=== PATIENT | male | born 1930 | race Hispanic/Latino ===

== ENCOUNTER 2020-01-27 19:57 | Inpatient (IN) | payer MEDICARE, OTHER ==
[~2020-01-27] VITALS: Ht 167.6 cm; Wt 81.0 kg
[~2020-01-27 19:57] MED LIST: AMLODIPINE BES2.5 MG PO; BENICAR5 MG PO; CARVEDILOL25 MG PO; DOXAZOSIN MESYLA4 MG PO; ECOTRIN81 MG PO; FERROUS SULFAT325 MG PO; FINASTERIDE5 MG PO; FUROSEMIDE40 MG PO; GLIPIZIDE ER2.5 MG PO; GLIPIZIDE5 MG PO; GLYSET PO; ISOSORBIDE MONO60 MG PO; JANUVIA50 MG PO; LIPITOR20 MG PO; PANTOPRAZOLE SO40 MG PO; PRADAXA75 MG PO; VITAMIN D350000 UNIT PO
[2020-01-27 20:15] LABS: BASOPHILS % 0.2 % (0.0-1.0); EOSINOPHILS % 0.2 % (0.0-6.0); HEMATOCRIT 22.6 % (38.2-49.6); HEMOGLOBIN 7.2 g/dL (14.0-18.0); LYMPHOCYTES # (AUTO) 0.5 (1.0-3.2); LYMPHOCYTES % 7.8 % (18.0-39.1); MEAN CORPUSCULAR HEMOGLOBIN 32.6 pg (28-32); MEAN CORPUSCULAR HGB CONC 31.9 g/dL (31-35); MEAN CORPUSCULAR VOLUME 102.3 fL (81-99); MONOCYTES # (AUTO) 0.4 (0.2-0.8); MONOCYTES % 6.7 % (4.4-11.3); NEUTROPHILS % 84.8 % (38.7-80.0); PLATELET COUNT 100 x10e3/uL (140-360); RED BLOOD COUNT 2.21 x10e6/uL (4.3-5.7)
[2020-01-27 20:34] LABS: ALBUMIN 3.5 g/dL (3.5-5.0); ANION GAP 17.6 mmol/L (8-16); CALCIUM 7.9 mg/dL (8.4-10.2); CREATININE, SERUM 4.48 mg/dL (0.72-1.25)
[2020-01-27 20:36] LABS: POTASSIUM 5.6 mmol/L (3.5-5.1)
[2020-01-27] MEDS ORDERED: CALCIUM GLUCONATE 10% INJ 4.65 MEQ in SODIUM CHLORIDE 0.9% 50ML 50 ML IV ONE (22:00)
[2020-01-27] MEDS ORDERED: FUROSEMIDE INJ 10 MG/ML 2 ML VIAL IV ONE (22:00)
[2020-01-27] MEDS ORDERED: SOD POLYSTYRENE SULFONATE SUSP 15 GM/60 ML BTL PO ONE (22:00)
[2020-01-27] MEDS: ALBUTEROL SULFATE HFA 8GM INHALATION AEROSOL INH PRN (23:15)
[2020-01-27] MEDS ORDERED: ALBUTEROL SULF 0.083% NEB SOLN 3 ML NEB NEB STA (23:19)
[2020-01-27] MEDS ORDERED: ALBUTEROL/IPRATROPIUM 3 ML NEB ONE (23:29)
[2020-01-27] MEDS ORDERED: ONDANSETRON HCL INJ 2MG/ML 2ML 2 MG/ML VIAL IV PRN (23:30)
[2020-01-28] VITALS (7 sets, daily range): BP systolic 125–171; BP diastolic 57–81
[2020-01-28 01:14] LABS: CLARITY,URINE SL CLOUDY (CLEAR); COLOR,URINE YELLOW (YELLOW); KETONES,URINE TRACE (NEGATIVE); LEUKOCYTE ESTERASE ,URINE NEGATIVE (NEGATIVE); NITRITE,URINE NEGATIVE (NEGATIVE); PROTEIN,URINE DIPSTICK 1+ (NEGATIVE); URINE UROBILINOGEN 0.2 mg/dL (0.2 - 1)
[2020-01-28 01:21] LABS: BACTERIA,URINE MODERATE /HPF; EPITHELIAL CELLS,URINE MODERATE /LPF; RBC,URINE 0-5 /HPF (0-5)
[2020-01-28] MEDS: SODIUM CHLORIDE 0.9% 1000ML 1,000 ML IV SCH ×3 (01:45→20:00)
[2020-01-28] MEDS: MORPHINE SULFATE INJ 4 MG/ML INJ 1ML IV PRN (01:45)
[2020-01-28] MEDS ORDERED: BUMETANIDE1 MG PO (02:31)
[2020-01-28] MEDS ORDERED: NIFEDIPINE ER30 M1 PO (02:31)
[2020-01-28] MEDS ORDERED: STARLIX120 MG PO (02:31)
[2020-01-28 07:06] LABS: BASOPHILS % 0.2 % (0.0-1.0); EOSINOPHILS % 0.5 % (0.0-6.0); LYMPHOCYTES # (AUTO) 0.7 (1.0-3.2); LYMPHOCYTES % 15.2 % (18.0-39.1); MEAN CORPUSCULAR HEMOGLOBIN 32.7 pg (28-32); MEAN CORPUSCULAR HGB CONC 31.9 g/dL (31-35); MEAN CORPUSCULAR VOLUME 102.5 fL (81-99); MONOCYTES # (AUTO) 0.4 (0.2-0.8); MONOCYTES % 8.1 % (4.4-11.3); NEUTROPHILS # (AUTO) 3.3 (2.1-6.9); NEUTROPHILS % 75.5 % (38.7-80.0); PLATELET COUNT 101 x10e3/uL (140-360); RED BLOOD COUNT 1.99 x10e6/uL (4.3-5.7); RED CELL DISTRIBUTION WIDTH 16.9 % (11.7-14.4)
[2020-01-28 07:12] LABS: HEMATOCRIT 20.4 % (38.2-49.6); HEMOGLOBIN 6.5 g/dL (14.0-18.0)
[2020-01-28 07:31] LABS: ANION GAP 17.5 mmol/L (8-16); CALCIUM 7.8 mg/dL (8.4-10.2); CREATININE, SERUM 4.33 mg/dL (0.72-1.25); POTASSIUM 4.5 mmol/L (3.5-5.1)
[2020-01-28] MEDS ORDERED: SODIUM CHLORIDE 0.9% 250ML 250 ML IV SCH (07:45)
[2020-01-28] MEDS ORDERED: SODIUM CHLORIDE 0.9% 250ML 250 ML ONE ×2 (12:12→15:16)
[2020-01-28] MEDS ORDERED: DEXTROSE 50% SYRINGE 50 ML IV PRN (14:30)
[2020-01-28] MEDS ORDERED: FERROUS SULFATE 325 MG TAB PO PRN (14:30)
[2020-01-28] MEDS ORDERED: FUROSEMIDE INJ 10 MG/ML 4 ML VIAL IV ONE (15:00)
[2020-01-28] MEDS: INSULIN REGULAR, HUMAN 100 UNIT/1 ML 3ML VIAL SQ SCH ×2 (16:30→21:00)
[2020-01-28] MEDS ORDERED: NATEGLINIDE 120 MG TAB PO SCH (17:00)
[2020-01-28] MEDS: DABIGATRAN ETEXILATE 75 MG CAP PO SCH (18:27)
[2020-01-28] MEDS ORDERED: ATORVASTATIN 20 MG TAB PO SCH (21:00)
[2020-01-28] MEDS ORDERED: OLMESARTAN MEDOXOMIL 5 MG TABLET PO SCH (21:00)
[2020-01-28] MEDS: FINASTERIDE 5 MG TAB PO SCH (22:30)
[2020-01-28] MEDS: NIFEDIPINE CR 30 MG TAB PO SCH (22:30)
[2020-01-28] MEDS: ATORVASTATIN 40 MG TAB PO SCH (22:30)
[2020-01-28] MEDS: ALBUTEROL SULFATE HFA 8GM INHALATION AEROSOL INH PRN (23:55)
[2020-01-29] VITALS (8 sets, daily range): BP systolic 120–163; BP diastolic 58–78
[2020-01-29] MEDS: SODIUM CHLORIDE 0.9% 1000ML 1,000 ML IV SCH ×2 (05:59→18:23)
[2020-01-29 06:12] LABS: BASOPHILS % 0.2 % (0.0-1.0); EOSINOPHILS % 0.5 % (0.0-6.0); HEMATOCRIT 28.8 % (38.2-49.6); HEMOGLOBIN 9.4 g/dL (14.0-18.0); LYMPHOCYTES # (AUTO) 0.6 (1.0-3.2); LYMPHOCYTES % 9.9 % (18.0-39.1); MEAN CORPUSCULAR HEMOGLOBIN 31.5 pg (28-32); MEAN CORPUSCULAR HGB CONC 32.6 g/dL (31-35); MEAN CORPUSCULAR VOLUME 96.6 fL (81-99); MONOCYTES # (AUTO) 0.4 (0.2-0.8); MONOCYTES % 6.6 % (4.4-11.3); NEUTROPHILS # (AUTO) 4.6 (2.1-6.9); NEUTROPHILS % 82.4 % (38.7-80.0); PLATELET COUNT 100 x10e3/uL (140-360); RED BLOOD COUNT 2.98 x10e6/uL (4.3-5.7); RED CELL DISTRIBUTION WIDTH 18.4 % (11.7-14.4)
[2020-01-29 06:30] LABS: ALBUMIN 2.9 g/dL (3.5-5.0); ALBUMIN/GLOBULIN RATIO 0.9 (0.8-2.0); ANION GAP 16.5 mmol/L (8-16); CALCIUM 7.6 mg/dL (8.4-10.2); CREATININE, SERUM 3.32 mg/dL (0.72-1.25); POTASSIUM 3.5 mmol/L (3.5-5.1)
[2020-01-29] MEDS: INSULIN REGULAR, HUMAN 100 UNIT/1 ML 3ML VIAL SQ SCH ×4 (07:30→20:01)
[2020-01-29] MEDS: ALBUTEROL SULFATE HFA 8GM INHALATION AEROSOL INH PRN (08:26)
[2020-01-29] MEDS ORDERED: FUROSEMIDE 40 MG TAB PO SCH (09:00)
[2020-01-29] MEDS ORDERED: PANTOPRAZOLE SOD 40 MG TABEC PO SCH (09:00)
[2020-01-29] MEDS: DABIGATRAN ETEXILATE 75 MG CAP PO SCH (09:00)
[2020-01-29] MEDS: ASPIRIN 81 MG ENTERIC COATED PO SCH (10:03)
[2020-01-29] MEDS: BUMETANIDE 1 MG TAB PO SCH (10:03)
[2020-01-29] MEDS ORDERED: VITAMIN D3 COM1 EACH PO (11:02)
[2020-01-29] MEDS ORDERED: HYDRALAZINE HCL25 MG PO (11:02)
[2020-01-29] MEDS ORDERED: CLOPIDOGREL75 MG PO (11:02)
[2020-01-29] MEDS ORDERED: COLACE100 MG PO (11:02)
[2020-01-29] MEDS ORDERED: DOCUSATE SODIUM 100 MG CAP PO PRN (11:15)
[2020-01-29] MEDS ORDERED: CYANOCOBALAMIN INJ 1,000 MCG/ML VIAL IM ONE (12:30)
[2020-01-29] MEDS: HYDRALAZINE HCL 25 MG TAB PO SCH ×2 (14:13→20:40)
[2020-01-29] MEDS: CALCIUM CARBONATE 500 MG CHEWABLE TABS PO PRN (14:14)
[2020-01-29] MEDS: GLYSET PO SCH (16:30)
[2020-01-29] MEDS: DOXAZOSIN MESYLATE 2 MG TAB PO SCH (18:00)
[2020-01-29] MEDS: CARVEDILOL 12.5 MG TAB PO SCH (18:03)
[2020-01-29] MEDS: FINASTERIDE 5 MG TAB PO SCH (20:40)
[2020-01-29] MEDS: ATORVASTATIN 40 MG TAB PO SCH (20:40)
[2020-01-29] MEDS: NIFEDIPINE CR 30 MG TAB PO SCH (22:03)
[2020-01-30] VITALS (8 sets, daily range): BP systolic 135–152; BP diastolic 62–71
[2020-01-30] MEDS: SODIUM CHLORIDE 0.9% 1000ML 1,000 ML IV SCH ×3 (02:00→23:25)
[2020-01-30 05:38] LABS: BASOPHILS % 0.2 % (0.0-1.0); EOSINOPHILS % 0.8 % (0.0-6.0); HEMATOCRIT 27.7 % (38.2-49.6); LYMPHOCYTES # (AUTO) 0.6 (1.0-3.2); LYMPHOCYTES % 11.6 % (18.0-39.1); MEAN CORPUSCULAR HGB CONC 32.5 g/dL (31-35); MEAN CORPUSCULAR VOLUME 95.5 fL (81-99); MONOCYTES # (AUTO) 0.4 (0.2-0.8); MONOCYTES % 7.4 % (4.4-11.3); NEUTROPHILS # (AUTO) 3.8 (2.1-6.9); NEUTROPHILS % 79.6 % (38.7-80.0); PLATELET COUNT 100 x10e3/uL (140-360); RED CELL DISTRIBUTION WIDTH 17.6 % (11.7-14.4)
[2020-01-30 06:24] LABS: ANION GAP 12.1 mmol/L (8-16); CALCIUM 7.6 mg/dL (8.4-10.2); CREATININE, SERUM 2.61 mg/dL (0.72-1.25); POTASSIUM 3.1 mmol/L (3.5-5.1)
[2020-01-30] MEDS: GLYSET PO SCH ×3 (07:30→16:30)
[2020-01-30] MEDS: INSULIN REGULAR, HUMAN 100 UNIT/1 ML 3ML VIAL SQ SCH ×4 (07:30→21:00)
[2020-01-30] MEDS: ASPIRIN 81 MG ENTERIC COATED PO SCH (09:00)
[2020-01-30] MEDS: CARVEDILOL 12.5 MG TAB PO SCH ×2 (09:39→17:55)
[2020-01-30] MEDS: HYDRALAZINE HCL 25 MG TAB PO SCH ×3 (09:40→21:31)
[2020-01-30] MEDS: BUMETANIDE 1 MG TAB PO SCH (09:41)
[2020-01-30] MEDS: DOXAZOSIN MESYLATE 2 MG TAB PO SCH ×2 (09:42→17:54)
[2020-01-30] MEDS: SITAGLIPTIN 100 MG TAB PO SCH (09:42)
[2020-01-30] MEDS: CLOPIDOGREL BISULFATE 75 MG TAB PO SCH (09:43)
[2020-01-30 09:44] LABS: CREATININE,URINE RANDOM 81.73 mg/dL (63-166)
[2020-01-30] MEDS: CHOLECALCIFEROL 1,000 UNIT TAB PO SCH (09:44)
[2020-01-30] MEDS: CALCIUM CARBONATE 500 MG CHEWABLE TABS PO PRN (09:50)
[2020-01-30 11:02] LABS: PLATELET ESTIMATE MODERATELY DECREASED; PLATELET MORPHOLOGY COMMENT NORMAL
[2020-01-30] MEDS ORDERED: POTASSIUM CHLORIDE 10MEQ EA PO ONE (13:00)
[2020-01-30] MEDS: PANTOPRAZOLE SOD 40 MG TABEC PO SCH (17:54)
[2020-01-30] MEDS: FINASTERIDE 5 MG TAB PO SCH (21:31)
[2020-01-30] MEDS: ATORVASTATIN 40 MG TAB PO SCH (21:31)
[2020-01-30] MEDS: NIFEDIPINE CR 30 MG TAB PO SCH (21:31)
[2020-01-31] VITALS (9 sets, daily range): BP systolic 117–158; BP diastolic 51–78
[2020-01-31 05:31] LABS: BASOPHILS % 0.2 % (0.0-1.0); EOSINOPHILS % 0.6 % (0.0-6.0); HEMATOCRIT 30.3 % (38.2-49.6); HEMOGLOBIN 9.8 g/dL (14.0-18.0); LYMPHOCYTES # (AUTO) 0.5 (1.0-3.2); LYMPHOCYTES % 9.2 % (18.0-39.1); MEAN CORPUSCULAR HEMOGLOBIN 31.2 pg (28-32); MEAN CORPUSCULAR HGB CONC 32.3 g/dL (31-35); MEAN CORPUSCULAR VOLUME 96.5 fL (81-99); MONOCYTES # (AUTO) 0.3 (0.2-0.8); MONOCYTES % 5.4 % (4.4-11.3); NEUTROPHILS # (AUTO) 4.2 (2.1-6.9); NEUTROPHILS % 84.2 % (38.7-80.0); PLATELET COUNT 107 x10e3/uL (140-360); RED BLOOD COUNT 3.14 x10e6/uL (4.3-5.7); RED CELL DISTRIBUTION WIDTH 17.3 % (11.7-14.4)
[2020-01-31 05:56] LABS: ANION GAP 12.3 mmol/L (8-16); CALCIUM 8.1 mg/dL (8.4-10.2); CREATININE, SERUM 2.09 mg/dL (0.72-1.25); POTASSIUM 3.3 mmol/L (3.5-5.1)
[2020-01-31] MEDS: GLYSET PO SCH ×3 (07:30→15:50)
[2020-01-31] MEDS: INSULIN REGULAR, HUMAN 100 UNIT/1 ML 3ML VIAL SQ SCH ×4 (07:30→20:20)
[2020-01-31] MEDS: ASPIRIN 81 MG ENTERIC COATED PO SCH (09:00)
[2020-01-31] MEDS: HYDRALAZINE HCL 25 MG TAB PO SCH ×3 (09:08→21:00)
[2020-01-31] MEDS: BUMETANIDE 1 MG TAB PO SCH (09:08)
[2020-01-31] MEDS: CARVEDILOL 12.5 MG TAB PO SCH ×2 (09:08→16:00)
[2020-01-31] MEDS: DOXAZOSIN MESYLATE 2 MG TAB PO SCH ×2 (09:09→16:00)
[2020-01-31] MEDS: SITAGLIPTIN 100 MG TAB PO SCH (09:09)
[2020-01-31] MEDS: CHOLECALCIFEROL 1,000 UNIT TAB PO SCH (09:09)
[2020-01-31] MEDS: CLOPIDOGREL BISULFATE 75 MG TAB PO SCH (09:09)
[2020-01-31 09:59] LABS: LYMPHOCYTES % (MANUAL) 6 % (19-48); MONOCYTES % (MANUAL) 2 % (3.4-9.0); NEUTROPHILS % (MANUAL) 91 % (40-74)
[2020-01-31 10:01] LABS: ANISOCYTOSIS SLIGHT; GIANT PLATELETS FEW; PLATELET ESTIMATE SLIGHTLY DECREASED; PLATELET MORPHOLOGY COMMENT FEW LARGE; RBC MORPHOLOGY COMMENT NORMAL
[2020-01-31] MEDS ORDERED: PROPOFOL IV EMULSION 10 MG/ML 20 ML VIAL ONE (12:21)
[2020-01-31] MEDS: SODIUM CHLORIDE 0.9% 1000ML 1,000 ML IV SCH ×2 (13:57→17:39)
[2020-01-31] MEDS: PANTOPRAZOLE SOD 40 MG TABEC PO SCH (15:50)
[2020-01-31] MEDS ORDERED: METOCLOPRAMIDE HCL 10 MG/2ML VIAL ONE (18:45)
[2020-01-31] MEDS: ATORVASTATIN 40 MG TAB PO SCH (21:00)
[2020-01-31] MEDS: FINASTERIDE 5 MG TAB PO SCH (21:00)
[2020-01-31] MEDS: NIFEDIPINE CR 30 MG TAB PO SCH (21:00)
[2020-01-31] MEDS: MORPHINE SULFATE INJ 4 MG/ML INJ 1ML IV PRN (21:39)
[2020-02-01] MEDS: SODIUM CHLORIDE 0.9% 1000ML 1,000 ML IV SCH ×2 (04:30→14:00)
[2020-02-01 04:52] VITALS: BP 131/69
[2020-02-01] MEDS: GLYSET PO SCH ×2 (07:30→11:30)
[2020-02-01] MEDS: INSULIN REGULAR, HUMAN 100 UNIT/1 ML 3ML VIAL SQ SCH ×2 (07:30→11:30)
[2020-02-01 08:00] VITALS: BP 131/56
[2020-02-01] MEDS: CARVEDILOL 12.5 MG TAB PO SCH (08:00)
[2020-02-01] MEDS: DOXAZOSIN MESYLATE 2 MG TAB PO SCH (08:00)
[2020-02-01] MEDS: SITAGLIPTIN 100 MG TAB PO SCH (08:00)
[2020-02-01] MEDS: BUMETANIDE 1 MG TAB PO SCH (08:00)
[2020-02-01] MEDS: HYDRALAZINE HCL 25 MG TAB PO SCH ×2 (08:00→15:00)
[2020-02-01] MEDS: CLOPIDOGREL BISULFATE 75 MG TAB PO SCH (08:00)
[2020-02-01] MEDS: ASPIRIN 81 MG ENTERIC COATED PO SCH (08:07)
[2020-02-01] MEDS: CHOLECALCIFEROL 1,000 UNIT TAB PO SCH (08:07)
[2020-02-01 08:11] VITALS: BP 131/56
[2020-02-01] MEDS ORDERED: ONDANSETRON HCL 4 MG ORAL DISINTEGRATING TAB PO PRN (10:30)
[2020-02-01 12:11] VITALS: BP 134/75
[2020-02-01 15:45] VITALS: BP 147/69
== END 2020-02-01 16:11 | disposition home or self-care (01) | DRG 377 ==
LOC: ER 20:51 → ERHOLD 23:27 → MED/SURG 01-28 00:39
PROC: 0DB78ZX Excision of Stomach, Pylorus, Via Natural or Artificial Opening Endoscopic, Diagnostic (ICD-10-PCS; 2020-01-31)
PROC: 0DB68ZX Excision of Stomach, Via Natural or Artificial Opening Endoscopic, Diagnostic (ICD-10-PCS; principal; 2020-01-31 18:04)
DX: K29.81 Duodenitis with bleeding (principal); J81.0 Acute pulmonary edema; I50.23 Acute on chronic systolic (congestive) heart failure; N17.9 Acute kidney failure, unspecified; N18.4 Chronic kidney disease, stage 4 (severe); K26.9 Duodenal ulcer, unspecified as acute or chronic, without hemorrhage or perforation; E11.51 Type 2 diabetes mellitus with diabetic peripheral angiopathy without gangrene; E11.22 Type 2 diabetes mellitus with diabetic chronic kidney disease; E11.21 Type 2 diabetes mellitus with diabetic nephropathy; I12.9 Hypertensive chronic kidney disease with stage 1 through stage 4 chronic kidney disease, or unspecified chronic kidney disease; K29.70 Gastritis, unspecified, without bleeding; K20.90 Esophagitis, unspecified without bleeding; E11.43 Type 2 diabetes mellitus with diabetic autonomic (poly)neuropathy; K31.84 Gastroparesis; Z79.899 Other long term (current) drug therapy; E87.5 Hyperkalemia; D63.8 Anemia in other chronic diseases classified elsewhere; I25.10 Atherosclerotic heart disease of native coronary artery without angina pectoris
CPT/HCPCS: 36415; 43239; 71046; 71250; 74176; 80048; 80053; 81001; 82270; 82575; 82607; 82746; 82948; 83690; 83880; 84484; 85025; 85045; 86850; 86900; 86920; 87086; 88305; 88312; 93005; 94640; 94664; 99284; J0610; J1817; J1940; J2270; J2405; J2765; J3420; J7030; J7050; P9016; U0002

== ENCOUNTER 2020-02-06 16:12 | Inpatient (IN) | payer MEDICARE ==
[~2020-02-06] VITALS: Ht 167.6 cm; Wt 69.0 kg
[~2020-02-06 16:12] MED LIST changes: +BUMETANIDE1 MG PO; +CLOPIDOGREL75 MG PO; +COLACE100 MG PO; +HYDRALAZINE HCL25 MG PO; +NIFEDIPINE ER30 M1 PO; +STARLIX120 MG PO; +VITAMIN D3 COM1 EACH PO
[2020-02-06 17:25] LABS: BASOPHILS % 0.1 % (0.0-1.0); EOSINOPHILS % 0.1 % (0.0-6.0); HEMATOCRIT 32.1 % (38.2-49.6); HEMOGLOBIN 10.5 g/dL (14.0-18.0); LYMPHOCYTES # (AUTO) 0.3 (1.0-3.2); LYMPHOCYTES % 2.6 % (18.0-39.1); MEAN CORPUSCULAR HEMOGLOBIN 31.3 pg (28-32); MEAN CORPUSCULAR HGB CONC 32.7 g/dL (31-35); MEAN CORPUSCULAR VOLUME 95.5 fL (81-99); MONOCYTES # (AUTO) 0.7 (0.2-0.8); MONOCYTES % 5.6 % (4.4-11.3); NEUTROPHILS # (AUTO) 11.1 (2.1-6.9); PLATELET COUNT 152 x10e3/uL (140-360); RED BLOOD COUNT 3.36 x10e6/uL (4.3-5.7); RED CELL DISTRIBUTION WIDTH 17.2 % (11.7-14.4)
[2020-02-06 17:29] LABS: PROTHROMBIN TIME 13.7 seconds (11.9-14.5)
[2020-02-06 17:30] LABS: PARTIAL THROMBOPLASTIN TIME 32.4 seconds (23.8-35.5)
[2020-02-06 17:39] LABS: ALBUMIN 3.3 g/dL (3.5-5.0); ALBUMIN/GLOBULIN RATIO 0.9 (0.8-2.0); ANION GAP 14.5 mmol/L (8-16); CALCIUM 8.1 mg/dL (8.4-10.2); CREATININE, SERUM 2.32 mg/dL (0.72-1.25); POTASSIUM 3.5 mmol/L (3.5-5.1)
[2020-02-06 17:46] LABS: CREATINE KINASE MB 3.9 ng/mL (0-5.0)
[2020-02-06 17:55] LABS: AMYLASE 32 U/L (25-125); LIPASE 6 U/L (8-78)
[2020-02-06] MEDS ORDERED: FUROSEMIDE INJ 10 MG/ML 4 ML VIAL IV ONE (20:30)
[2020-02-06] MEDS ORDERED: DEXTROSE 50% SYRINGE 50 ML IV PRN (20:45)
[2020-02-06] MEDS ORDERED: SODIUM CHLORIDE FLUSH 10 ML SYR INJ PRN (20:45)
[2020-02-06] MEDS: FUROSEMIDE INJ 10 MG/ML 4 ML VIAL IV SCH (20:54)
[2020-02-06] MEDS: INSULIN REGULAR, HUMAN 100 UNIT/1 ML 3ML VIAL SQ SCH (21:16)
[2020-02-06 22:00] VITALS: BP 163/68
[2020-02-06] MEDS ORDERED: FERROUS SULFATE 325 MG TAB PO PRN (23:00)
[2020-02-06] MEDS ORDERED: DOCUSATE SODIUM 100 MG CAP PO PRN (23:00)
[2020-02-07] MEDS ORDERED: MIRALAX17 GM PO (00:08)
[2020-02-07 01:52] LABS: CREATINE KINASE MB 2.2 ng/mL (0-5.0)
[2020-02-07] MEDS: NIFEDIPINE CR 30 MG TAB PO SCH ×2 (02:38→21:55)
[2020-02-07 05:19] LABS: BASOPHILS % 0.2 % (0.0-1.0); HEMATOCRIT 31.2 % (38.2-49.6); HEMOGLOBIN 10.3 g/dL (14.0-18.0); LYMPHOCYTES # (AUTO) 0.5 (1.0-3.2); LYMPHOCYTES % 3.1 % (18.0-39.1); MEAN CORPUSCULAR HEMOGLOBIN 32.1 pg (28-32); MEAN CORPUSCULAR VOLUME 97.2 fL (81-99); MONOCYTES # (AUTO) 0.8 (0.2-0.8); MONOCYTES % 5.4 % (4.4-11.3); NEUTROPHILS # (AUTO) 13.4 (2.1-6.9); NEUTROPHILS % 90.6 % (38.7-80.0); PLATELET COUNT 139 x10e3/uL (140-360); RED BLOOD COUNT 3.21 x10e6/uL (4.3-5.7); RED CELL DISTRIBUTION WIDTH 17.3 % (11.7-14.4)
[2020-02-07] MEDS: FUROSEMIDE INJ 10 MG/ML 4 ML VIAL IV SCH ×3 (05:32→21:55)
[2020-02-07 06:21] LABS: ALBUMIN 2.9 g/dL (3.5-5.0); ALBUMIN/GLOBULIN RATIO 0.9 (0.8-2.0); ANION GAP 13.5 mmol/L (8-16); CREATININE, SERUM 2.22 mg/dL (0.72-1.25); POTASSIUM 3.5 mmol/L (3.5-5.1)
[2020-02-07] MEDS: INSULIN REGULAR, HUMAN 100 UNIT/1 ML 3ML VIAL SQ SCH ×4 (07:30→21:00)
[2020-02-07 08:00] VITALS: BP 179/75
[2020-02-07 08:40] VITALS: BP 145/53
[2020-02-07] MEDS ORDERED: PANTOPRAZOLE SOD 40 MG TABEC PO SCH (09:00)
[2020-02-07] MEDS: HYDRALAZINE HCL 25 MG TAB PO SCH ×3 (09:52→21:00)
[2020-02-07] MEDS: DOXAZOSIN MESYLATE 2 MG TAB PO SCH ×2 (09:53→17:37)
[2020-02-07] MEDS: CARVEDILOL 12.5 MG TAB PO SCH ×2 (09:53→17:39)
[2020-02-07] MEDS: SITAGLIPTIN 100 MG TAB PO SCH (09:54)
[2020-02-07] MEDS: NATEGLINIDE 120 MG TAB PO SCH ×2 (09:55→17:39)
[2020-02-07 12:14] VITALS: BP 117/51
[2020-02-07 13:36] LABS: CREATINE KINASE MB 2.2 ng/mL (0-5.0)
[2020-02-07] MEDS: VANCOMYCIN 1GM/NS 250 ML 250 ML IV SCH (14:49)
[2020-02-07] MEDS: CEFEPIME 1GM/NS 0.9% 50 ML 50 ML IV SCH (14:49)
[2020-02-07 15:25] LABS: CLARITY,URINE HAZY (CLEAR); COLOR,URINE YELLOW (YELLOW); KETONES,URINE NEGATIVE (NEGATIVE); LEUKOCYTE ESTERASE ,URINE MODERATE (NEGATIVE); NITRITE,URINE POSITIVE (NEGATIVE); PROTEIN,URINE DIPSTICK TRACE (NEGATIVE); URINE UROBILINOGEN 0.2 mg/dL (0.2 - 1)
[2020-02-07 15:37] LABS: BACTERIA,URINE MANY /HPF
[2020-02-07 16:05] VITALS: BP 136/48
[2020-02-07] MEDS: PANTOPRAZOLE SOD 40 MG TABEC PO SCH (17:39)
[2020-02-07 20:00] VITALS: BP 127/47
[2020-02-07 21:00] VITALS: BP 127/47
[2020-02-07] MEDS: FINASTERIDE 5 MG TAB PO SCH (21:55)
[2020-02-07] MEDS: ATORVASTATIN 20 MG TAB PO SCH (21:55)
[2020-02-08] VITALS (8 sets, daily range): BP systolic 101–153; BP diastolic 43–65
[2020-02-08] MEDS ORDERED: SODIUM CHLORIDE 0.9% 250ML 250 ML ONE (00:46)
[2020-02-08] MEDS: CEFEPIME 1GM/NS 0.9% 50 ML 50 ML IV SCH ×2 (00:51→17:58)
[2020-02-08] MEDS: HYDRALAZINE HCL 25 MG TAB PO SCH ×4 (00:52→21:00)
[2020-02-08 05:16] LABS: BASOPHILS % 0.1 % (0.0-1.0); EOSINOPHILS % 0.1 % (0.0-6.0); HEMATOCRIT 28.9 % (38.2-49.6); HEMOGLOBIN 9.4 g/dL (14.0-18.0); LYMPHOCYTES # (AUTO) 0.5 (1.0-3.2); LYMPHOCYTES % 3.5 % (18.0-39.1); MEAN CORPUSCULAR HEMOGLOBIN 31.1 pg (28-32); MEAN CORPUSCULAR HGB CONC 32.5 g/dL (31-35); MEAN CORPUSCULAR VOLUME 95.7 fL (81-99); MONOCYTES # (AUTO) 0.7 (0.2-0.8); MONOCYTES % 4.8 % (4.4-11.3); NEUTROPHILS # (AUTO) 13.6 (2.1-6.9); NEUTROPHILS % 90.5 % (38.7-80.0); PLATELET COUNT 135 x10e3/uL (140-360); RED BLOOD COUNT 3.02 x10e6/uL (4.3-5.7); RED CELL DISTRIBUTION WIDTH 17.2 % (11.7-14.4)
[2020-02-08 05:37] LABS: CALCIUM IONIZED 1.1 mmol/L (1.09-1.30)
[2020-02-08 05:45] LABS: ALBUMIN 2.6 g/dL (3.5-5.0); ALBUMIN/GLOBULIN RATIO 0.8 (0.8-2.0); ANION GAP 13.7 mmol/L (8-16); CALCIUM 7.8 mg/dL (8.4-10.2); CREATININE, SERUM 2.23 mg/dL (0.72-1.25)
[2020-02-08 05:54] LABS: POTASSIUM 2.7 mmol/L (3.5-5.1)
[2020-02-08] MEDS: FUROSEMIDE INJ 10 MG/ML 4 ML VIAL IV SCH (05:57)
[2020-02-08 06:01] LABS: MAGNESIUM 1.6 MG/DL (1.3-2.1)
[2020-02-08] MEDS: INSULIN REGULAR, HUMAN 100 UNIT/1 ML 3ML VIAL SQ SCH ×4 (07:30→20:12)
[2020-02-08] MEDS: DOXAZOSIN MESYLATE 2 MG TAB PO SCH ×2 (09:36→18:06)
[2020-02-08] MEDS: CARVEDILOL 12.5 MG TAB PO SCH ×2 (09:37→18:14)
[2020-02-08] MEDS: SITAGLIPTIN 100 MG TAB PO SCH (09:37)
[2020-02-08] MEDS: NATEGLINIDE 120 MG TAB PO SCH ×2 (09:38→18:15)
[2020-02-08] MEDS: PANTOPRAZOLE SOD 40 MG TABEC PO SCH ×2 (09:38→18:15)
[2020-02-08] MEDS ORDERED: MAGNESIUM SULFATE 2GM/50ML 50 ML IV ONE (11:45)
[2020-02-08] MEDS ORDERED: POTASSIUM CHLORIDE 20MEQ/100ML 300 ML IV ONE (11:45)
[2020-02-08] MEDS ORDERED: POTASSIUM CHLORIDE 20 MEQ TAB CR PO NR (12:00)
[2020-02-08] MEDS ORDERED: POTASSIUM CHLORIDE 20MEQ/100ML 200 ML IV ONE (12:30)
[2020-02-08] MEDS: VANCOMYCIN 1GM/NS 250 ML 250 ML IV SCH (17:59)
[2020-02-08] MEDS: FUROSEMIDE 40 MG TAB PO SCH (18:15)
[2020-02-08] MEDS: LIDOCAINE 4% PATCH TP SCH (20:00)
[2020-02-08] MEDS: ATORVASTATIN 20 MG TAB PO SCH (21:00)
[2020-02-08] MEDS: NIFEDIPINE CR 30 MG TAB PO SCH (21:00)
[2020-02-08] MEDS: FINASTERIDE 5 MG TAB PO SCH (21:00)
[2020-02-09] VITALS (8 sets, daily range): BP systolic 109–145; BP diastolic 48–95
[2020-02-09] MEDS: CEFEPIME 1GM/NS 0.9% 50 ML 50 ML IV SCH ×2 (00:48→13:30)
[2020-02-09] MEDS ORDERED: SODIUM CHLORIDE 0.9% 250ML 250 ML ONE (00:48)
[2020-02-09 05:09] LABS: BASOPHILS % 0.2 % (0.0-1.0); EOSINOPHILS % 0.2 % (0.0-6.0); HEMATOCRIT 27.5 % (38.2-49.6); LYMPHOCYTES # (AUTO) 0.5 (1.0-3.2); MEAN CORPUSCULAR HEMOGLOBIN 31.7 pg (28-32); MEAN CORPUSCULAR HGB CONC 32.7 g/dL (31-35); MEAN CORPUSCULAR VOLUME 96.8 fL (81-99); MONOCYTES # (AUTO) 0.6 (0.2-0.8); MONOCYTES % 4.3 % (4.4-11.3); NEUTROPHILS # (AUTO) 11.4 (2.1-6.9); PLATELET COUNT 131 x10e3/uL (140-360); RED BLOOD COUNT 2.84 x10e6/uL (4.3-5.7); RED CELL DISTRIBUTION WIDTH 17.1 % (11.7-14.4)
[2020-02-09 05:22] LABS: ANION GAP 13.2 mmol/L (8-16); CALCIUM 7.9 mg/dL (8.4-10.2); CREATININE, SERUM 2.63 mg/dL (0.72-1.25); POTASSIUM 3.2 mmol/L (3.5-5.1)
[2020-02-09] MEDS: FUROSEMIDE 40 MG TAB PO SCH ×2 (05:45→16:52)
[2020-02-09] MEDS: INSULIN REGULAR, HUMAN 100 UNIT/1 ML 3ML VIAL SQ SCH ×4 (07:30→21:00)
[2020-02-09] MEDS: PANTOPRAZOLE SOD 40 MG TABEC PO SCH ×2 (08:15→16:52)
[2020-02-09] MEDS: SITAGLIPTIN 100 MG TAB PO SCH (08:16)
[2020-02-09] MEDS: DOXAZOSIN MESYLATE 2 MG TAB PO SCH ×2 (08:16→16:52)
[2020-02-09] MEDS: HYDRALAZINE HCL 25 MG TAB PO SCH ×3 (08:16→21:00)
[2020-02-09] MEDS: BALSAM PERU/CASTOR OIL 60 GM OINT...G. TP SCH (08:16)
[2020-02-09] MEDS: NATEGLINIDE 120 MG TAB PO SCH ×2 (08:16→16:52)
[2020-02-09] MEDS: CARVEDILOL 12.5 MG TAB PO SCH ×2 (08:16→16:52)
[2020-02-09] MEDS ORDERED: LIDOCAINE 4% PATCH TP SCH (09:00)
[2020-02-09] MEDS ORDERED: POTASSIUM CHLORIDE 20 MEQ TAB CR PO ONE (12:20)
[2020-02-09] MEDS: VANCOMYCIN 1GM/NS 250 ML 250 ML IV SCH (14:25)
[2020-02-09] MEDS ORDERED: POTASSIUM CHLORIDE 10MEQ EA PO ONE (15:00)
[2020-02-09] MEDS: LIDOCAINE 4% PATCH TP SCH (19:57)
[2020-02-09] MEDS: NIFEDIPINE CR 30 MG TAB PO SCH (21:00)
[2020-02-09] MEDS: ATORVASTATIN 20 MG TAB PO SCH (21:39)
[2020-02-09] MEDS: FINASTERIDE 5 MG TAB PO SCH (21:39)
[2020-02-10] VITALS: BP 132/47
[2020-02-10] MEDS: CEFEPIME 1GM/NS 0.9% 50 ML 50 ML IV SCH ×2 (01:00→15:16)
[2020-02-10] MEDS: FUROSEMIDE 40 MG TAB PO SCH ×2 (05:55→18:06)
[2020-02-10 06:32] LABS: BASOPHILS % 0.1 % (0.0-1.0); EOSINOPHILS # (AUTO) 0.1 (0.0-0.4); EOSINOPHILS % 0.6 % (0.0-6.0); HEMATOCRIT 29.1 % (38.2-49.6); HEMOGLOBIN 9.4 g/dL (14.0-18.0); LYMPHOCYTES # (AUTO) 0.5 (1.0-3.2); LYMPHOCYTES % 4.8 % (18.0-39.1); MEAN CORPUSCULAR HEMOGLOBIN 31.8 pg (28-32); MEAN CORPUSCULAR HGB CONC 32.3 g/dL (31-35); MEAN CORPUSCULAR VOLUME 98.3 fL (81-99); MONOCYTES # (AUTO) 0.5 (0.2-0.8); MONOCYTES % 4.6 % (4.4-11.3); NEUTROPHILS # (AUTO) 8.9 (2.1-6.9); NEUTROPHILS % 89.2 % (38.7-80.0); PLATELET COUNT 131 x10e3/uL (140-360); RED BLOOD COUNT 2.96 x10e6/uL (4.3-5.7); RED CELL DISTRIBUTION WIDTH 17.2 % (11.7-14.4)
[2020-02-10 06:53] LABS: ANION GAP 12.6 mmol/L (8-16); CALCIUM 7.7 mg/dL (8.4-10.2); CREATININE, SERUM 2.87 mg/dL (0.72-1.25); POTASSIUM 3.6 mmol/L (3.5-5.1)
[2020-02-10] MEDS: INSULIN REGULAR, HUMAN 100 UNIT/1 ML 3ML VIAL SQ SCH ×4 (07:30→21:00)
[2020-02-10 07:32] VITALS: BP 149/66
[2020-02-10 08:00] VITALS: BP 149/66
[2020-02-10] MEDS: SITAGLIPTIN 100 MG TAB PO SCH (09:00)
[2020-02-10] MEDS: NATEGLINIDE 120 MG TAB PO SCH ×2 (09:00→17:00)
[2020-02-10] MEDS: DOXAZOSIN MESYLATE 2 MG TAB PO SCH ×2 (11:17→18:05)
[2020-02-10] MEDS: HYDRALAZINE HCL 25 MG TAB PO SCH ×3 (11:17→21:00)
[2020-02-10] MEDS: CARVEDILOL 12.5 MG TAB PO SCH ×2 (11:18→18:05)
[2020-02-10] MEDS: PANTOPRAZOLE SOD 40 MG TABEC PO SCH ×2 (11:19→18:05)
[2020-02-10] MEDS: BALSAM PERU/CASTOR OIL 60 GM OINT...G. TP SCH (11:24)
[2020-02-10 12:16] VITALS: BP 154/73
[2020-02-10] MEDS: VANCOMYCIN 1GM/NS 250 ML 250 ML IV SCH (15:16)
[2020-02-10 15:53] VITALS: BP 157/72
[2020-02-10] MEDS: LIDOCAINE 4% PATCH TP SCH (19:00)
[2020-02-10 20:00] VITALS: BP 150/60
[2020-02-10] MEDS: NIFEDIPINE CR 30 MG TAB PO SCH (21:00)
[2020-02-10] MEDS: FINASTERIDE 5 MG TAB PO SCH (21:00)
[2020-02-10] MEDS: ATORVASTATIN 20 MG TAB PO SCH (21:00)
[2020-02-11] VITALS: BP 130/69
[2020-02-11] MEDS: CEFEPIME 1GM/NS 0.9% 50 ML 50 ML IV SCH ×2 (01:49→12:57)
[2020-02-11] MEDS: FUROSEMIDE 40 MG TAB PO SCH (06:44)
[2020-02-11] MEDS: INSULIN REGULAR, HUMAN 100 UNIT/1 ML 3ML VIAL SQ SCH ×2 (07:30→12:00)
[2020-02-11 08:55] VITALS: BP 141/55
[2020-02-11] MEDS: SITAGLIPTIN 100 MG TAB PO SCH (09:00)
[2020-02-11] MEDS: NATEGLINIDE 120 MG TAB PO SCH (09:00)
[2020-02-11] MEDS: DOXAZOSIN MESYLATE 2 MG TAB PO SCH (10:20)
[2020-02-11] MEDS: HYDRALAZINE HCL 25 MG TAB PO SCH (10:21)
[2020-02-11] MEDS: CARVEDILOL 12.5 MG TAB PO SCH (10:21)
[2020-02-11] MEDS: PANTOPRAZOLE SOD 40 MG TABEC PO SCH (10:21)
[2020-02-11 12:21] VITALS: BP 112/45
[2020-02-11 14:00] VITALS: BP 140/58
== END 2020-02-11 15:06 | disposition home or self-care (01) | DRG 291 ==
LOC: ER 16:36 → INTOOBSV 20:44 → ERHOLD 20:44 → MED/SURG2 21:55 → OBSVTOIN 02-08 15:43
DX: I13.0 Hypertensive heart and chronic kidney disease with heart failure and stage 1 through stage 4 chronic kidney disease, or unspecified chronic kidney disease (principal); I50.23 Acute on chronic systolic (congestive) heart failure; N18.4 Chronic kidney disease, stage 4 (severe); N17.9 Acute kidney failure, unspecified; E11.22 Type 2 diabetes mellitus with diabetic chronic kidney disease; E87.6 Hypokalemia; E11.51 Type 2 diabetes mellitus with diabetic peripheral angiopathy without gangrene; I25.10 Atherosclerotic heart disease of native coronary artery without angina pectoris; Z95.1 Presence of aortocoronary bypass graft; Z95.0 Presence of cardiac pacemaker; E78.5 Hyperlipidemia, unspecified; K27.9 Peptic ulcer, site unspecified, unspecified as acute or chronic, without hemorrhage or perforation; K21.9 Gastro-esophageal reflux disease without esophagitis; Z89.612 Acquired absence of left leg above knee; N40.0 Benign prostatic hyperplasia without lower urinary tract symptoms; D63.8 Anemia in other chronic diseases classified elsewhere; Z20.828 Contact with and (suspected) exposure to other viral communicable diseases
CPT/HCPCS: 36415; 71045; 74176; 76705; 76770; 80048; 80053; 81001; 82150; 82550; 82553; 82948; 83690; 83735; 83880; 84484; 85025; 85610; 85730; 87040; 87086; 87186; 93005; 93306; 99251; 99284; G0378; J0692; J1940; J3370; J3475; J3480; J7050; U0002